=== PATIENT | male | born 1965 | race African-American/Black ===

== ENCOUNTER 2016-10-12 08:00 | Inpatient (IN) | payer OTHER ==
--- NOTE | ~2016-10-12 | DS ---
Unit #: [id number] #: [id number] Patient: VIC HOLLAND [id number] [facility] [address] [place] [address] [id number] MR#: [id number] NAME: VIC HOLLAND ROOM: [facility] Age: 51 Sex: M Admission Date: 10/12/2016 : 1965 Discharge Date: 10/16/2016 Attending Physician: Tomy Montana M.D. Primary Care Physician: Primary Care Physician No DISCHARGE SUMMARY REASON FOR ADMISSION Vic is a 51-year-old man with a history of bipolar disorder or psychotic depression, variously diagnosed, who has been noncompliant with medications and had a brief substance related relapse. He was unable to contract for safety in the emergency room and had auditory hallucinations with command suicidal content. He was readmitted for stabilization. DIAGNOSTIC STUDIES LABORATORY DATA: Please see hospital chart. HOSPITAL COURSE Patient was admitted and placed back on Wellbutrin, Seroquel and all of his home medications. He participated appropriately in unit groups and activities and physical examination was conducted and was unremarkable while noting his history of HIV with erratic followup. The patient reported that his family was supportive and he planned to discharge to [place] to follow up in the community with family and social support. On the date of discharge, he was once again able to contract for safety in the outpatient setting. DISCHARGE DIAGNOSES AXIS I: Bipolar disorder, depressed. Polysubstance dependence. AXIS II: No diagnosis. AXIS III: HIV positive. History of asthma. History of herpes. INSTRUCTIONS TO PATIENT Follow up with community mental health and primary care physician in [place], [place]. DISCHARGE MEDICATIONS 1. Wellbutrin XL 150 mg daily for depression. 2. Seroquel 200 mg at bedtime for psychosis and mood stability. 3. Minipress 2 mg at bedtime for nightmares. PRIMARY CARE MEDICINES 1. Deltasone 40 mg daily for asthma. 2. Pepcid 40 mg for GERD. 3. Lasix 40 mg daily for hypertension. 4. Potassium chloride 20 mEq daily for potassium replacement. 5. Ceclor 500 mg t.i.d. for infection. Unit #: [id number] #: [id number] Patient: VIC HOLLAND 6. Carvedilol 6.25 twice daily for hypertension. 7. Proventil inhaler 2 puffs every 4 hours as needed for shortness of air. 8. Chloraseptic spray as needed for throat discomfort. CONDITION ON DISCHARGE Improved. PROGNOSIS Fair to good. DIET AND ACTIVITY Per primary care doctor. Dictated by... Tomy Montana M.D. ZAKIA/lee TD: 12/18/2016 18:36 JOB #: [id number] DISCHARGE SUMMARY Page 1 of 1 X Tomy Montana MD X DISCHARGE SUMMARY
--- NOTE | ~2016-10-12 | HP ---
Unit #: [id number] #: [id number] Patient: VIC HOLLAND [id number] [facility] [address] [place] [address] [id number] MR#: [id number] NAME: VIC HOLLAND ROOM: [facility] Age: 51 Sex: M Admission Date: 10/12/2016 : 1965 Attending Physician: Tomy Montana M.D. Admitting Physician: oTmy Montana M.D. Primary Care Physician: Primary Care Physician No HISTORY AND PHYSICAL HISTORY OF PRESENT ILLNESS Vic is a 51 year old admitted to [facility] after reporting auditory and visual hallucinations. He is a poor historian so his history is taken from his chart. He has had had other admissions to this facility. PAST MEDICAL HISTORY 1. Positive HIV, diagnosed many years ago. a. He has been followed at the [facility]. 2. History of genital herpes. 3. COPD. 4. Cardiomyopathy. PAST SURGICAL HISTORY Inguinal hernia repair. ALLERGIES Ibuprofen SOCIAL HISTORY Smokes less than one-half pack per day. Drinks alcohol on occasion. Admits to a history of illicit substance abuse to include marijuana and crack cocaine. FAMILY HISTORY Medically noncontributory. REVIEW OF SYSTEMS CONSTITUTIONAL: No fever or chills. HEENT: Denies any sore throat, ear pain or runny nose. CARDIOVASCULAR: Denies chest pain, irregular heart rhythm or palpitations. CHEST: Denies shortness of breath or cough. No hemoptysis. GASTROINTESTINAL: Denies nausea, vomiting, diarrhea or chronic constipation. ENDOCRINE: Denies history of increased thirst or urination. No recent significant weight loss or gain. GENITOURINARY: Denies dysuria, frequency, or hematuria. SKIN: Denies any rashes. HEMATOLOGIC: Denies history of increased bleeding or bruising. MUSCULOSKELETAL: Denies any hot, swollen joints. No generalized muscle pain. NEUROLOGIC: Denies problems with vision or speech. No frequent, severe headaches. No numbness, tingling or weakness in any extremities. Denies Unit #: [id number] #: [id number] Patient: VIC HOLLAND loss of bladder or bowel control. CURRENT MEDICATIONS 1. Wellbutrin XL 150 mg q.a.m. 2. Lasix 40 mg q. day 3. KCL 20 mEq q day 4. Proventil inhaler p.r.n. 5. Milk of Magnesia p.r.n. 6. Maalox p.r.n. 7. Tylenol p.r.n. 8. Pepcid 20 mg b.i.d. 9. Minipress 2 mg q.h.s. 10. Seroquel 200 mg q.h.s. 11. Coreg 6.25 mg b.i.d. 12. Nicotine patch 14 mg daily PHYSICAL EXAMINATION GENERAL: Alert, well-nourished, in no apparent distress. VITAL SIGNS: Blood pressure 110/84, heart rate 60, respirations 16, temperature 98.6. WEIGHT: 160 pounds. HEIGHT: 6'1". SKIN: Warm and dry without rash or lesion. HEENT: Normocephalic. TMs not viewed. Oral and nasal passages clear. Conjunctivae clear. Pupils equal, round and reactive to light and accommodation. Extraocular movements intact. NECK: Supple without lymphadenopathy or thyromegaly. HEART: Regular rate and rhythm without murmur. LUNGS: Clear. ABDOMEN: Soft, nontender. : Not done. EXTREMITIES: No evidence of cyanosis, clubbing or edema. Moves all extremities without focal deficit. NEUROLOGICAL: Grossly within normal limits. Cranial Nerves: II: Visual nance are intact. III, IV AND : Extraocular movements are intact. Pupils are equal, round and reactive to light. V: Facial sensation is grossly normal. VII: Facial movements and expression are normal. VIII: Auditory acuity grossly intact. IX, X: Uvula is midline. Phonation is normal. XI: Patient shrugs shoulders and turns head normally. XII: Tongue protrudes in the midline. Sensory and Motor Function: Sensory and motor sensation is grossly normal. Motor: moves all extremities well. Coordination: Gait is normal. Deep Tendon Reflexes: Intact. IMPRESSION Psychiatric admission RECOMMENDATIONS PSYCHIATRIC: Per psychiatrist. MEDICAL: I see no contraindications to participating in facility's activities. MEDICAL PROGNOSIS Good. Unit #: [id number] #: [id number] Patient: VIC HOLLAND MEDICAL CONDITION Stable. Dictated by... Agata Devine P.A.-C. for Tarun [place]/asiya TD: 10/14/2016 02:35 JOB #: [id number] HISTORY AND PHYSICAL Page 1 of 1 X Agata Devine HISTORY AND PHYSICAL
--- NOTE | ~2016-10-12 | PA ---
Unit #: [id number] #: [id number] Patient: VIC LANGLEY [id number] [facility] [address] [place] [address] [id number] MR#: [id number] NAME: VIC LANGLEY ROOM: [facility] Age: 51 Sex: M Admission Date: 10/12/2016 : 1965 Date of Assessment: 10/13/2016 Attending Physician: Tomy Montana M.D. Admitting Physician: Tomy Montana M.D. Primary Care Physician: Primary Care Physician No PSYCHIATRIC ASSESSMENT DATE OF SERVICE 10/13/2016. INFORMANTS The patient, reliable. [employer] [place], reliable. CHIEF COMPLAINT Auditory hallucinations and delusions. HISTORY OF PRESENT ILLNESS Ander Langley is a 51-year-old man, who came to the emergency room reporting he had stopped his antipsychotic medications, which have caused him to feel increasingly paranoid with auditory hallucinations telling him to hurt people. He was unable to contract for safety and was admitted due to his psychotic decompensation. PAST PSYCHIATRIC HISTORY Previous admission to this facility in 06/2016. The patient was treated at [facility] in the past for psychosis. FAMILY PSYCHIATRIC HISTORY None. SOCIAL HISTORY Please see previous assessments. PAST MEDICAL HISTORY The patient is HIV positive and has a history of asthma and genital herpes. MEDICATIONS Albuterol and STRIBILD. ALLERGIES Ibuprofen. SUBSTANCE USE HISTORY The patient has a history of using occasional cannabis and crack cocaine. MENTAL STATUS EXAMINATION The patient presented as a disheveled man, who appeared his stated age. He was cooperative with the examination. His speech was spontaneous and easily understood. Musculoskeletal examination was calm. His mood was depressed with a decreased range of affect. He was alert and fully Unit #: [id number] #: [id number] Patient: VIC LANGLEY oriented. His memory and concentration were fair to good. His thought processes were goal directed with active auditory hallucinations and suicidal ideation with multiple plans. He could not contract for safety outside of the hospital. Insight and judgment were fair. Fund of knowledge and abstraction were fair. ASSETS AND LIABILITIES The patient is familiar with local resources and has some community support. Liabilities include apparent noncompliance with medication and psychotic decompensation. ADMITTING DIAGNOSES AXIS I: Major depression with psychotic features. History of schizophrenia. AXIS II: No diagnosis. AXIS III: Human immunodeficiency virus positive, history of asthma, history of herpes. AXIS IV: AXIS V: PSYCHIATRIC PLAN The patient was admitted and placed on home medications and suicide precautions. Physical examination and laboratory studies will be ordered and reviewed. We will restart Wellbutrin and Seroquel for psychotic depression and monitor for response. TREATMENT GOALS Resolution of psychosis, resolution of SI, improvement in insight, and improvement in coping skills. DISCHARGE PLANNING [facility] ESTIMATED LENGTH OF STAY 5 days. Dictated by... Tomy Montana M.D. /matheus TD: 12/19/2016 04:26 JOB #: [id number] Unit #: [id number] #: [id number] Patient: VIC LANGLEY PSYCHIATRIC ASSESSMENT Page 1 of 1 X Tomy Montana MD X PSYCHIATRIC ASSESSMENT
--- NOTE | ~2016-10-12 | A ---
[facility] Nutrition Therapy DATE: 10/13/16 Patient: VIC HOLLAND Physician: ALYSSA Address: [address] [facility] [address] Room/Bed: [address], Zip: [place] [address] Admit Date: 10/12/16 Date of : [birth year] Height: 6 1 Weight: [phone] NUTRITIONAL ASSESSMENT: REASON: NUTRITIONAL RISK POINT- UNINTENTIONAL WEIGHT LOSS PATIENT ADMITTED FOR A/V HALLUCINATIONS AND SI/HI PMH: HIV, COPD Anthropometrics: HT: 6'1", WT: 160#, BMI: 21.1 Labs: NO LABS AVAILABLE Meds: FUROSEMIDE, SEROQUEL, PREDNISONE, KLOR-CON Assessment: PATIENT IS A 51 Y/O MALE ADMITTED FOR A/V HALLUCINATIONS AND SI/HI. PATIENT IS CURRENTLY UNEMPLOYED, HOMELESS, IS A DAILY SMOKER, AND HAS DAILY USE OF ETOH, MARIJUANA, AND COCAINE. PATIENT HAS BEEN NON-COMPLIANT WITH HIS MEDICATIONS PRIOR TO ADMIT, AND HE HAS A HX OF INPATIENT PSYCH HOSPITALIZATIONS. RD ASSESSED 06/30/16- NOTE REVIEWED. PATIENT WAS TREATED FOR PNEUMONIA AT THE HOSPITAL PRIOR TO ADMIT TO THIS FACILITY. PATIENT STATED A POOR APPETITE WITH A 15# WEIGHT LOSS OVER LAST SEVERAL WEEKS, AND HE STAYS UP FOR 2-3 DAYS AT A TIME. WEIGHT HX PER [facility] SHOWS A 9# WEIGHT INCREASE SINCE LAST ADMIT 4 MONTHS AGO. PATIENT IS ON A REGULAR DIET. THERE ARE NO SKIN OR GI ISSUES NOTED ATT. FUROSEMIDE MAY CAUSE WEIGHT FLUCTUATIONS. Dx: NO NUTRITION DX Intervention: REGULAR DIET, MEDS PER MD, PSYCH Monitoring, Evaluation and Goals: 1. ADEQUATE PO INTAKES >50% OF MEALS 2. PREVENT, CORRECT MICRO/MACRO NUTRIENT DEFICIENCIES MONITOR: WEIGHTS, LABS, PO/FLUID INTAKES Recommendations: 1. CONTINUE REGULAR DIET TOLERATED 2. ENCOURAGE ADEQUATE PO AND FLUID INTAKES RD TO F/U PER PROTOCOL AND PRN R/T PATIENT NOT AT NUTRITIONAL RISK ATT [facility] Nutrition Therapy DATE: 10/13/16 Patient: VIC HOLLAND Physician: ALYSSA Address: [address] [facility] [address] Room/Bed: [address], Zip: [place] [address] Admit Date: 10/12/16 Date of : [birth year] Height: 6 1 Weight: [phone] Respectfully, TRAV DAS RD, LD [facility] and [facility] cc: client file
--- NOTE | ~2016-10-12 | FU ---
[facility] Nutrition Therapy DATE: 10/13/16 Patient: VIC HOLLAND Physician: ALYSSA Address: [address] [place] [address] Room/Bed: P182-1 [facility], Zip: [place] [address] Admit Date: 10/12/16 Date of : [birth year] Height: 6 1 Weight: [phone] NUTRITION MONITORING/FOLLOW-UP: Reason: CONSULT "WEIGHT LOSS" Anthropometrics: HT: 6'1", WT: 153# (RE-WEIGHT 10/13/16), BMI: 20.2 Assessment: FULL NUTRITION ASSESSMENT COMPLETED 10/13/16 - PLEASE SEE NOTE. PATIENT CONSULTED FOR WEIGHT LOSS. PER NURSING, PATIENT'S RE-WEIGHT TODAY (10/13/16) IS 153#. THIS IS A 2# WEIGHT GAIN SINCE LAST ADMIT ON 06/29/16. PATIENT'S BMI IS WITHIN A HEALTHY RANGE. THERE ARE NO SKIN OR GI ISSUES NOTED. PATIENT IS ON A REGULAR DIET. Recommendations: 1. CONTINUE REGULAR DIET TOLERATED. OFFER SNACKS BETWEEN MEALS IF PATIENT HAS C/O HUNGER. MAY INCREASE ENTREES TO LARGE PORTIONS AND RD WILL APPROVE. WILL CONTINUE TO F/U WITH PATIENT AND MONITOR PO INTAKES AND WEIGHT. Respectfully, TRAV DAS RD, LD Food and Nutritional Services [facility] cc: client file
[~2016-10-12 08:00] MED LIST: TYLENOL #3 PO; VIBRAMYCIN100 M1 DOB
== END 2016-10-16 16:25 | DRG 885 ==
LOC: P1E 21:13
DX: F32.3 Major depressive disorder, single episode, severe with psychotic features (principal); R45.851 Suicidal ideations; Z21 Asymptomatic human immunodeficiency virus [HIV] infection status; Z88.6 Allergy status to analgesic agent; J44.9 Chronic obstructive pulmonary disease, unspecified; F17.210 Nicotine dependence, cigarettes, uncomplicated